=== PATIENT | female | born 1955 | race Caucasian/White ===

== ENCOUNTER 2017-07-03 14:34 | Emergency (ER) | payer BC ==
[2017-07-03 15:27] VITALS: BP 129/86
--- NOTE | 2017-07-03 15:59 | RAD ---
INDICATION: Left wrist injury. TECHNIQUE: 3 views of the left wrist were obtained. FINDINGS: There is dorsal lateral soft tissue swelling present. The bones appear osteopenic. There is a transverse slightly comminuted nondisplaced fracture of the distal radius. A component of the fracture appears to extend to the distal articular margin. No other fractures are seen. 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 IMPRESSION: SLIGHTLY COMMINUTED NONDISPLACED INTRA-ARTICULAR FRACTURE OF THE DISTAL RADIUS.
--- NOTE | 2017-07-03 16:07 | UC ---
Hand/Wrist HPI - HPI Summary HPI Summary: fell 1 hour ago ice skating, wrist is swollen and painful - History Of Current Complaint Chief Complaint: UCUpperExtremity Stated Complaint: LEFT WRIST INJ Hx Obtained From: Patient Hx Last Menstrual Period: late 30s ?: No Onset/Duration: Sudden Onset, Lasting Hours Severity Initially: Severe Severity Currently: Severe Character Of Pain: Throbbing Aggravating Factor(s): Movement, Lifting, Flexion, Extension, Internal/External Rotation Alleviating Factor(s): Nothing Associated Signs And Symptoms: Positive: Swelling - Risk Factors Compartment Syndrome Risk Factors: Pain - Allergies/Home Medications Allergies/Adverse Reactions: Allergies Allergy/AdvReac Type Severity Reaction Status Date / Time No Known Allergies Allergy Verified 07/03/17 15:22 PMH/Surg Hx/FS Hx/Imm Hx Previously Healthy: Yes - Surgical History Surgical History: Yes Surgery Procedure, Year, and Place: csection, laminectomy - Family History Known Family History: Negative: Hypertension - Social History Alcohol Use: Occasionally Substance Use Type: None Smoking Status (MU): Never Smoked Tobacco - Immunization History Most Recent Influenza Vaccination: no Review of Systems Constitutional: Negative Skin: Negative Eyes: Negative ENT: Negative Respiratory: Negative Cardiovascular: Negative Gastrointestinal: Negative Genitourinary: Negative Motor: Negative Neurovascular: Negative Musculoskeletal: Arthralgia, Decreased ROM, Edema, Myalgia Psychological: Negative Is Patient Immunocompromised?: No All Other Systems Reviewed And Are Negative: Yes Physical Exam Triage Information Reviewed: Yes Appearance: Well-Appearing, Well-Nourished, Pain Distress Vital Signs: Initial Vital Signs Temp 99 F 07/03/17 15:23 Pulse 77 07/03/17 15:23 Resp 18 07/03/17 15:23 BP 129/86 07/03/17 15:23 Vital Signs Reviewed: Yes Eye Exam: Normal ENT Exam: Normal Dental Exam: Normal Neck exam: Normal Respiratory Exam: Normal Respiratory: Positive: Chest non-tender, Lungs clear, Normal breath sounds Cardiovascular Exam: Normal Cardiovascular: Positive: RRR, No Murmur, Pulses Normal Abdominal Exam: Normal Abdomen Description: Positive: Nontender, No Organomegaly, Soft Bowel Sounds: Positive: Present Musculoskeletal Exam: Normal Musculoskeletal: Positive: 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 referred to ortho - Differential Dx/Diagnosis Differential Diagnosis/HQI/PQRI: Cellulitis, Contusion, Fracture, Sprain, Strain , Tendonitis Provider Diagnoses: communited non displaced distal radial fracture , left wrist Discharge - Discharge Plan Condition: Stable Disposition: HOME Patient Education Materials: Wrist Fracture in Adults (ED) Referrals: Mejia Cruz [Primary Care Provider] - Fabián Rivera MD [Medical Doctor] - Additional Instructions: 1. keep in the barber and splint until seen by orthopedic, 2. use sling for support as needed. 3. Use ibuprofen for the next 48 hours for swelling and pain 400-600 mg every 4- 6 hours, then as needed. 4. follow up immediately if you develop any change in sensation or color of the fingers that does not improve with change in position.
== END 2017-07-03 16:13 | disposition home or self-care (01) ==
LOC: UCCORT 14:34
DX: S52.572A Other intraarticular fracture of lower end of left radius, initial encounter for closed fracture (principal); V00.211A Fall from ice-skates, initial encounter; Y93.21 Activity, ice skating; Y92.9 Unspecified place or not applicable
CPT/HCPCS: 99213; G0463